=== PATIENT | female | born 1980 | race Hispanic/Latino ===

== ENCOUNTER 2024-08-10 10:37 | Emergency (ER) | payer BC ==
[~2024-08-10] VITALS: Ht 157.5 cm; Wt 74.8 kg
[2024-08-10 11:03] VITALS: TEMP 99.4
[2024-08-10] MEDS ORDERED: SODIUM CHLORIDE FLUSH 10 ML SYR IV PRN (11:15)
[2024-08-10] MEDS: BENZONATATE 100 MG CAP PO STA (11:43)
[2024-08-10 12:14] LABS: BASOPHILS % 0.3 % (0.0-1.0); EOSINOPHILS % 0.1 % (0.0-6.0); HEMATOCRIT 32.4 % (34.2-44.1); HEMOGLOBIN 9.5 g/dL (12.0-16.0); LYMPHOCYTES # (AUTO) 0.7 (1.0-3.2); LYMPHOCYTES % 9.7 % (18.0-39.1); MEAN CORPUSCULAR HEMOGLOBIN 24.5 pg (28-32); MEAN CORPUSCULAR HGB CONC 29.3 g/dL (31-35); MEAN CORPUSCULAR VOLUME 83.5 fL (81-99); MONOCYTES # (AUTO) 0.4 (0.2-0.8); MONOCYTES % 5.5 % (4.4-11.3); NEUTROPHILS % 83.7 % (38.7-80.0); PLATELET COUNT 283 x10e3/uL (140-360); RED BLOOD COUNT 3.88 x10e6/uL (3.6-5.1); RED CELL DISTRIBUTION WIDTH 15.7 % (11.7-14.4); WHITE BLOOD COUNT 7.15 x10e3/uL (4.8-10.8)
[2024-08-10 12:37] LABS: ALANINE AMINOTRANSFERASE 28 IU/L (0-55); ALBUMIN 3.4 g/dL (3.5-5.0); ALBUMIN/GLOBULIN RATIO 0.9 (0.8-2.0); ALKALINE PHOSPHATASE 106 IU/L (40-150); BILIRUBIN,TOTAL 0.3 mg/dL (0.2-1.2); BLOOD UREA NITROGEN 7 mg/dL (7-26); BUN/CREATININE RATIO 9 (6-25); CALCIUM 8.6 mg/dL (8.4-10.2); CARBON DIOXIDE 24 mmol/L (22-29); CHLORIDE 100 mmol/L (98-107); CREATININE, SERUM 0.82 mg/dL (0.57-1.11); EST GLOMERULAR FILTRATION RATE 91 ML/MIN (>=60); GLUCOSE 89 mg/dL (74-118); SODIUM 136 mmol/L (136-145); TOTAL PROTEIN 7.2 g/dL (6.5-8.1)
[2024-08-10 12:40] LABS: INFLUENZA A AG POSITIVE (NEGATIVE); INFLUENZA B AG NEGATIVE (NEGATIVE)
[2024-08-10 12:41] LABS: CORONAVIRUS COVID-19 AG NEGATIVE (NEGATIVE)
[2024-08-10 12:47] LABS: TROPONIN I 0.004 ng/mL (0-0.300)
[2024-08-10 14:00] VITALS: PULSE 85; RESP 16
[2024-08-10] MEDS ORDERED: BENZONATATE100 MG PO (14:04)
[2024-08-10 14:33] VITALS: BP 115/79; PULSE 85; RESP 16; O2SAT 100
== END 2024-08-10 14:30 | disposition home or self-care (01) ==
LOC: ER 11:10
DX: R50.9 Fever, unspecified (principal); J10.1 Influenza due to other identified influenza virus with other respiratory manifestations; R05.9 Cough, unspecified; R10.12 Left upper quadrant pain; Z11.52 Encounter for screening for COVID-19; R94.31 Abnormal electrocardiogram [ECG] [EKG]
CPT/HCPCS: 36415; 71046; 80053; 84484; 84702; 85025; 93005; 94760; 99284